=== PATIENT | female | born 1950 | race Caucasian/White ===

== ENCOUNTER 2016-07-25 06:36 | Day surgery (SDC) | payer MEDICARE, MEDICAID ==
[~2016-07-25] VITALS: Ht 152.4 cm; Wt 61.9 kg
[2016-07-25] VITALS (21 sets, daily range): BP systolic 78–161; BP diastolic 37–70; PULSE 65–80; RESP 4–20; O2SAT 92–100
[2016-07-25] MEDS: Lactated Ringer's 1,000 ML IV SCH ×5 (05:00→22:44)
[~2016-07-25 06:36] MED LIST: AMPH30CA5 PO; BACL10TA PO; CeFAZolin Inj 2 GM in IV Premix 1 EACH IV ONE; DESI75TA4 PO; DICL75TA6 PO; MIRA25TA PO; OMEP40CA36 PO; Phenazopyridine 97.5 mg Tablet PO ONE; TOPI200T7 PO; TRAZ-115 PO
[2016-07-25] MEDS ORDERED: Ondansetron 2 mg/mL 2 mL Inj ONE (06:37)
[2016-07-25] MEDS ORDERED: Furosemide 10 mg/mL 4 mL Inj ONE (06:37)
[2016-07-25] MEDS ORDERED: Dexamethasone 4 mg/mL Inj ONE (06:37)
[2016-07-25] MEDS ORDERED: Morphine PF 1 mg/mL 10 mL Inj ONE (06:37)
[2016-07-25] MEDS ORDERED: Ketamine 10 mg/mL 20 mL Inj ONE (06:37)
[2016-07-25] MEDS ORDERED: MetoCLOpramide 5 mg/mL 2 mL Inj ONE (06:37)
[2016-07-25] MEDS ORDERED: Propofol 10,000 mCg/mL 20 mL Inj ONE (06:37)
[2016-07-25] MEDS ORDERED: Phenylephrine/NS-PF 100 mCg/mL 5 mL Syringe IVPUSH ONE ×2 (06:37→14:58)
[2016-07-25] MEDS ORDERED: Rocuronium 10 mg/mL 5 mL Inj ONE (06:37)
[2016-07-25] MEDS ORDERED: EPHEDrine/NS 5 mg/mL 5 mL Syringe ONE (06:37)
[2016-07-25] MEDS ORDERED: Phenylephrine 10,000 mCg/mL Inj ONE (06:37)
[2016-07-25] MEDS ORDERED: CeFAZolin Inj 2 gm / 50mL D5W IV ONE (06:42)
[2016-07-25] MEDS ORDERED: Phenazopyridine 97.5 mg Tablet ONE (06:42)
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
[2016-07-25] MEDS ORDERED: Lactated Ringer's 1,000 ML IV SCH (09:23)
[2016-07-25] MEDS ORDERED: Lactated Ringer's 500 ML IV PRN (09:23)
[2016-07-25] MEDS ORDERED: MetoCLOpramide 5 mg/mL 2 mL Inj IVPUSH PRN ×2 (09:25→14:45)
[2016-07-25] MEDS ORDERED: Dexamethasone 4 mg/mL Inj IVPUSH PRN (09:25)
[2016-07-25] MEDS ORDERED: fentaNYL-PF 50 mCg/mL 2 mL Inj IVPUSH PRN (09:25)
[2016-07-25] MEDS ORDERED: Ondansetron 2 mg/mL 2 mL Inj IVPUSH PRN ×2 (09:25→14:45)
[2016-07-25] MEDS ORDERED: HYDROmorphone 1 mg/mL Inj IVPUSH PRN (09:25)
[2016-07-25] MEDS ORDERED: Phenylephrine 10,000 mCg/mL Inj IVPUSH PRN (09:25)
[2016-07-25] MEDS ORDERED: EPHEDrine Sulfate 50 mg/mL Inj IVPUSH PRN (09:25)
[2016-07-25] MEDS ORDERED: Lidocaine 1%-Epi 1:100,000 20 mL Inj INJ ONE (09:34)
[2016-07-25] MEDS ORDERED: Sodium Chloride Bacteriostatic 30 mL Inj INJ ONE ×2 (09:35→12:09)
[2016-07-25] MEDS ORDERED: Gentamicin 40 mg/mL 2 mL Inj IRRIGATION ONE ×2 (10:28→13:25)
[2016-07-25] MEDS ORDERED: Lactated Ringer's 1,000 ML IV ONE ×2 (11:16→13:00)
[2016-07-25] MEDS ORDERED: Lidocaine 1%-Epi 1:100,000 20 mL Inj INFILTRATE ONE (12:08)
[2016-07-25] MEDS ORDERED: HYDROcodone-APAP 5-325 mg Tablet PO PRN (14:45)
[2016-07-25] MEDS ORDERED: Alum-Mag Hydrox-Simeth 30 mL Suspension PO PRN (14:45)
[2016-07-25] MEDS ORDERED: Acetaminophen IV 1,000 MG in IV Premix 1 EACH IV ONE ×2 (14:45→22:30)
[2016-07-25] MEDS ORDERED: diphenhydrAMINE 25 mg Capsule PO PRN (14:45)
--- NOTE | 2016-07-25 15:26 | PCM.ANEP1 ---
Post Anesthesia Phase 1 PACU Phase 1 Assessment Vital Signs Vital Signs Date Time Temp Pulse Resp B/P Pulse Ox O2 Delivery O2 Flow Rate FiO2 07/25/16 15:20 72 12 96/56 100 Simple Mask 10 07/25/16 15:15 73 20 90/49 100 Simple Mask 10 07/25/16 15:05 65 7 89/37 100 Simple Mask 10 07/25/16 15:00 65 9 98/46 100 Simple Mask 10 07/25/16 14:55 65 11 78/49 100 Simple Mask 10 07/25/16 14:54 67 8 90/42 100 Simple Mask 10 07/25/16 14:52 67 4 82/42 100 Simple Mask 10 07/25/16 14:40 69 8 95/55 100 Simple Mask 10 07/25/16 14:33 36 69 14 104/59 100 Simple Mask 10 07/25/16 07:27 36.1 80 16 139/58 100 Room Air Anesthetic Administered: GA Level of Alertness: Awake, talking Pain: No Nausea or Vomiting: No Airway Device: Oralpharangeal Airway Lungs: Normal Air Movement Laith Pelayo MD Jul 25, 2016 15:26
--- NOTE | 2016-07-25 15:26 | PCM.ANEP2 ---
Post Anesthesia Evaluation ASA/CMS Post Anesthesia VS in Patient's Normal Range?: Yes Resp Stable; Airway Patent?: Yes CV Function & Hydration Stable: Yes Mental Status Recovered?: Yes Pain control Satisfactory?: Yes N/V Control Satisfactory?: Yes Laith Pelayo MD Jul 25, 2016 15:26
--- NOTE | 2016-07-25 16:18 | NUR ---
Pt is new to the floor. SW received call from pt's HCS Track Laborer Leonora Mccartney [phone] wondering if pt's catheter bags will be included in discharge supplies? Please update pt and Leonora Mccartney [phone] with this information prior to discharge. KELLIE Coronado
--- NOTE | 2016-07-25 17:15 | NUR ---
Post Op Pt arrived to [facility] rm 1030 from the OR at approx 1630. Rec'd report from Lucio. Pt was not answering questions, but open eyes to loud voices and sternal rub. Does not follow commands, was unable to scoot herself over to the hospital bed from the [facility]. Anesthesia called, at bedside. Romazicon administered x3mls. RT called, ETCO2 placed. VSS BGL 128 BP 99/60. Pt diaphoretic, appears extremely sleepy. Labs ordered by anesthesia, Dr Chaudhary notified.
[2016-07-25] MEDS: Flumazenil 0.1 mg/mL 5 mL Inj IV ONE ×2 (17:20→17:22)
--- NOTE | 2016-07-25 17:23 | ABG ---
DateTimeAnalyzed 17:17:00 -_ pH ____7.343 - 7.350 7.450 pCO2 ___41.6__ -mmHg 35.0 45.0 pO2 ___95.8__ -mmHg 69.0 116 HCO3- ___22.0__ -mmol/L 22.0 26.0 ABE ___-2.9__ -mmol/L -2.0 2.0 tHb ____9.8__ -g/dL O2Hb ___95.4__ -% COHb ____0.7__ -% MetHb ____1.9__ -% sO2 ___97.9__ -% FIO2 ___28.0__ -% Drawn By MT - Date/Time Notified____ 17:23:00 -_ Oxygen Device 1 __CANNULA - Notified By MT - Notified Whom Dr Leedom - B 768 -mmHg tO2 ___13.3__ -Vol% Tay test _Positive -
[2016-07-25 17:53] LABS: Mean Corpuscular Volume 93.7 fL (81-100)
--- NOTE | 2016-07-25 22:35 | PCM.SURGOP ---
Surgical Operative Report Date of Service: Jul 25, 2016 Pre Operative Diagnosis 1. Stress incontinence in female N39.3 (625.6): 2. POPQ stage 3 anterior vaginal prolapse 3. POPQ stage 2 apical uterine prolapse and posterior vaginal prolapse 4. RIANA 1-2 on recent cervical biopsy Post Operative Diagnosis 1. Stress incontinence in female 2. POPQ stage 3 cystocele and deficient pubocervical/pubovesical fascia 3. POPQ stage 2 uterine prolapse, enterocele and posterior vaginal prolapse Procedure: 1. vaginal hysterectomy with bilateral salpingectomy 2. anterior repair with Xenform graft augmentation 3. posterior repair 4. aborted high uterosacral ligament vaginal vault suspension; left sacrospinous vaginal vault suspension performed instead (PROCEDURE CODE 77728) 5. enterocele repair 6. TVT-obturator sling and cystoscopy Surgeon and Temporary Receptionist: Surgeon: Jeremiah Chaudhary MD Assistants: Etelvina Sparks Indication for Procedure Her assessment to date includes: 1. Urge incontinence N39.41 (788.31): 2. Stress incontinence in female N39.3 (625.6): 3. RIANA 1-2 on recent cervical biopsy 4. Cystocele, midline N81.11 (618.01): 5. Rectocele N81.6 (618.04): 6. Uterovaginal prolapse, incomplete N81.2 (618.2): She is a candidate for a vaginal hysterectomy with bilateral salpingectomy, anterior repair and posterior repair with possible Xenform biologic graft augmentation, vaginal vault suspension, enterocele repair and TVT-O sling/cystoscopy. The patient signed the consent form. She agreed with the risks, benefits, and alternatives to surgery. The risks included but not limited to recurrence or persistence of prolapse, recurrence of persistence of incontinence, development of voiding dysfunction, development of urinary urgency, urgency incontinence, frequency, and need for intermittent self-catheterization or prolonged indwelling catheterization, injury to other organs including bladder, bowel, nerves or blood vessels. Need for blood transfusion, need for temporary colostomy or urinary stenting. Development of vaginal scarring, dyspareunia, defecatory dysfunction, recurring pain, hematoma formation, urinary tract infection, cellulitis, necrotizing fascitis, and medical risks including myocardial infarction, stroke or VTE. She also understood the FDA warnings associated with the use of vaginal mesh (dysparunia, vaginal erosion, erosion into bowel/bladder/urethra, requiring further surgery to correct these complications). She understands surgery may not cure the urge incontinence and she may require the continued use of Myrbetriq. The patient understood the risks and benefits and consented to surgery. She has obtained neurological clearance. Findings: see dictation Procedure Details SURGICAL TECHNIQUE: The patient was brought to the operating room. She was placed under general anesthesia after spinal epimorph. She was positioned with legs in Yellowfin stirrups. She was prepped and draped in the normal fashion for vaginal surgery. She was given a dose of IV Ancef intraoperatively. She received 200 mg pyridium orally 30 min prior to surgery. 1. Vaginal Hysterectomy and bilateral salpingectomy: Lidocaine 0.5% with 1:50,000 of epinephrine was infiltrated pericervically. A pericervical incision was made with cautery. Anteriorly, the bladder was sharply dissected off the cervix. Posteriorly, the cul de sac was entered with Sharp dissection. The bowels were packed with a mini-laparotomy sponge. The uterosacral ligaments were bilaterally clamped, divided and then tied in a transfixion fashion with 0- vicryl suture. Anteriorly, the Uterovesical peritoneum was entered with sharp dissection and the bladder was retracted upward with a right-angle retractor. The uterine vessels were then clamped, cut and tied with 0-vicryl suture. The uterine body was delivered posteriorly. The utero-ovarian ligaments were clamped bilaterally, ligated and then tied using 0-Vicryl suture. The tubes appeared normal. Both ovaries were small and normal. She agreed to have a bilateral salpingectomy. The tubes were clamped at their base, coagulated with Ligasure and excised. The base was tied with 0-vicryl suture. The uterus/cervix, and tubes were sent to pathology. It was noted that the pedicles were hemostatic. 2-0 vicryl suture was used to achieve hemostasis along the cuff. 2. Aborted High uterosacral ligament vaginal vault suspension; cystoscopy and enterocele repair: Mini laparotomy sponges were packed to retract the bowel upwards. A pair of Allis clamps were placed along the intraperitoneal portions of the vagina at the 5 and 7 o'clock positions. Tension along these Allis clamps allowed for identification of the uterosacral ligaments bilaterally. A pair of 0 Vicryl sutures were passed around the uterosacral ligaments of the level of the ischial spine bilaterally, totalling 4. The peritoneum was torn along the right pelvic side wall. Oozing was noted along right pelvic side wall in the retroperitonal space. Adequate hemostasis was achieved using direct pressure with sponges, then insertion of Gelfoam in the space. The torn peritoneum was reapproximated with 2-0 vicryl suture in a running fashion. Cystoscopy was performed. As the pyridium was not concentrating well in the urine, 200 ml of D50 was instilled into the bladder. Tension was applied along the vault sutures and brisk spillage of urine was not noted from either ureteric orifice despite giving a bolus of fluid and IV Lasix. Therefore, the vault suspension sutures were excised. Repeat cystoscopy then revealed brisk spillage of urine from the ureteric orifices in the bladder. The D50 was emptied from the bladder and the bladder was rinsed with normal saline. We decided to abort the high uterosacral ligament suspension and instead perform a sacrospinous ligament vault suspension (see later in the dictation). Next one 3-0 Prolene suture were placed transversely through the cul-de-sac peritoneum. This was performed while using a gloved finger in the rectum as to avoid penetrating the underlying rectal mucosa. Tying these sutures obliterated the enterocele. The distal enterocele sac left over was excised and sent to pathology. 3. Anterior colporrhaphy with Xenform graft augmentation: Lidocaine 0.5% with 1 /28920 epinephrine was infiltrated along the anterior vaginal wall mucosa. A midline vertical incision was made through the anterior vaginal wall. The vaginal wall was dissected off the underlying pubocervical and pubovesical fascia. The dissection was extended laterally beyond the ischial pubic rami. Bilateral paravaginal defects were noted. It was noted that the pubocervical and pubovesical fascial tissues were deficient and thin. The cystocele was plicated in 2 layers, the first layer with 2-0 Vicryl suture in interrupted fashion, the second layer with 2-0 Tycron suture in an interrupted fashion. A trapezoidal piece of Xenform graft was then incorporated atop the plicated area far laterally. The graft was secured to the obturator internus membrane. At the level of the bladder neck, an upside down triangular piece of graft was excised so that there was no over-support created along the level of the bladder neck. Apically , the graft was passed through the planned sacrospinous ligament vaginal vault suspension sutures. No excess anterior vaginal mucosa was needed to be excised. 4. Posterior colpoperineorrhaphy and left sacrospinous vaginal vault suspension : Lidocaine 0.5% with 1:50,000 of epinephrine was infiltrated along the perineum and posterior vaginal wall mucosa. A midline vertical incision was made through the perineum and posterior vaginal wall. The vaginal mucosa was dissected off the underlying rectovaginal tissues. It was noted the fascial tissues were sufficient. The left perirectal space was then entered with sharp and blunt dissection to expose the left sacrospinous ligament. While retracting the rectum medially with a Briesky retractor, two 0- vicryl sutures were passed through the sacrospinous ligament approx. 1.5-2 cm medial to the ischial spine. The vault suspension sutures were then passed through the planned apex of the vagina. The rectocele was plicated in two layers using 2-0 Vicryl suture in an interrupted fashion. A mild amount of excess posterior vaginal mucosa was excised. The vagina was then reapproximated using 3-0 Vicryl suture in a running-locked fashion. The perineum was reapproximated using 2-0 Vicryl suture in an interrupted fashion. The skin was reapproximated using 3-0 Vicryl suture in a subcuticular fashion. The sacrospinous vaginal vault suspension sutures were tied and this elevated the apex of the vagina towards the L sacrospinous ligament. 5. TVT-Obturator sling and cystoscopy. Lidocaine 0.5% with 1/01690 epinephrine was infiltrated along the anterior vaginal wall mucosa at the level of the mid urethra. Midline vertical incision was made at that level, 2 periurethral tunnels were created with Metzenbaum scissors. Two stab incisions were created at the skin at the groin at a level 2 cm superior to the external urethral meatus and 2 cm lateral to the fold created between the vulva and thigh. Fair catheter had already been inserted. A butterfly guide was inserted into the right periurethral tunnel, a curved helical needle was inserted on top of the guide and rotated out to the ipsilateral skin incision. The same procedure was performed on the contralateral side. Next the Fair catheter was removed. Cystoscopy was performed with 300 ml D50 with NS. There was no inadvertent penetration of the sling through the vagina, urethra or bladder. In addition, the ureteric orifices were noted bilaterally to be functional by the brisk spillage of urine. The bladder appeared normal. The plastic sheaths of the sling were removed. Using the Crede maneuver, sling tension was appropriately adjusted. Also a large right angle clamp was allowed to easily pass behind the sling so that the sling was placed in a tension-free manner. The sling ends were cut at the level of the skin. The skin was reapproximated using Mastisol, Steri-Strips and band-aids. The vagina was reapproximated using 3-0 Vicryl suture in a running fashion The vagina was packed with XY-lubricated packing. An indwelling 16 F fair catheter was connected to straight drainage. The patient's hips were periodically deflexed during the case. The EBL was 300 ml. All sponges and instruments were accounted for. She was taken to the recovery room in stable condition. Complications After excision and removal of the high uterosacral ligament vault suspension sutures, cystoscopy revealed normal ureteric patency via cystoscopic visualization of brisk spillage of urine at the ureteric orifices Surgical Specimen Removed: Yes Specimen sent to Pathology: Yes Surgical Specimen description: Uterus, tubes, cervix, enterocele sac Anesthetic Plan: GA, SAB Grafts, Implants: Grafts-See Implant Record, Implants-See Implant Record Output, Estimated Blood Loss: 300 (ml) Blood Administration during villarreal: No Drains: None Catheters: Urethral 2 Way Fair Post Operative Plan overnight stay in bed as outpatient as she requires a voiding trial in the am copies to: Queenie Serna DO; Jeremiah Chaudhary MD; Etelvina Sparks William Andre Z MD Jul 25, 2016 22:35
[2016-07-26 00:20] VITALS: BP 120/64; PULSE 78; RESP 16; O2SAT 100
[2016-07-26] MEDS: Lactated Ringer's 1,000 ML IV SCH (01:25)
[2016-07-26 02:18] LABS: BASOPHILS % (AUTO) 0.1 % (0-3); EOSINOPHILS % (AUTO) 0.1 % (0-5); MONOCYTES % (AUTO) 9.8 % (4-12); Mean Corpuscular Hemoglobin 31.3 pg (27.0-35.0); Mean Corpuscular Volume 93.4 fL (81-100); NEUTROPHILS % (AUTO) 78.2 % (40-74); Platelet Count 299 bil/L (150-400)
[2016-07-26 02:32] VITALS: O2SAT 100
[2016-07-26 06:30] VITALS: BP 125/67; PULSE 79; RESP 18; O2SAT 94
[2016-07-26] MEDS ORDERED: Pantoprazole 40 mg ER24 Tablet PO SCH (06:30)
[2016-07-26 07:54] VITALS: O2SAT 95
[2016-07-26] MEDS ORDERED: Senna-Docusate 8.6-50 mg Tablet PO SCH (08:30)
[2016-07-26] MEDS ORDERED: Tolterodine ER 2 mg ER24 Capsule PO SCH (08:30)
[2016-07-26] MEDS ORDERED: DEXTROAMPHETAMINE 15 MG PO SCH (08:30)
[2016-07-26] MEDS ORDERED: Amphetamines (Mixed) XR 10 mg ER24 Capsule PO SCH (08:30)
[2016-07-26] MEDS ORDERED: Heparin 5,000 Unit/mL Inj SUBQ SCH (09:30)
--- NOTE | 2016-07-26 11:20 | PCM.PNSURG ---
Subjective Date of Service: Jul 26, 2016 Date of Service: Jul 26, 2016 Visit Information: Reason for Visit Cystocele,Uterovag Prolapse,Rectocele,Incontinence Surgery/Surgery Date Post-Op Day # 1 Subjective: AVSS pt was assessed by anesthesiologist early this am and found her to be somewhat drowsy However, I saw the patient later this am and she was fully alert after she was helped out of the bed onto a chair; she usually ambulates with a cane at home Oriented x 3 I explained the surgery to her Her serial Hct were stable (9.0 at 0213 am and 9.0 at 0905 am today); known hx of pre-existing anemia even prior to surgery She states she cannot tolerate oral iron tolerated soft foods Pain control with tylenol for now; narcotics was held until her drowsiness improved; NSAIDs held until we knew Hct was stable Gastrointestinal: Tolerating Oral Feedings Pain Management: PO Neurological: Other (oriented x 3) Postop Activity: Ambulate with Assist Objective Vital Sign- Last 8 Hours Date Time Temp Pulse Resp B/P Pulse Ox O2 Delivery O2 Flow Rate FiO2 07/26/16 07:54 81 95 Room Air 07/26/16 06:30 36.3 79 18 125/67 94 Room Air 07/26/16 04:12 Supplement Oxygen Intake and Output- Last 8 Hour 07/26/16 Cumulative From/Thru 07:00 07/24/16 12:57 - 07/26/16 06:51 Intake Total 1535 ml 4585 ml Output Total 950 ml 2260 ml Balance 585 ml 2325 ml Intake Oral 50 ml 50 ml IV Total 1485 ml 4535 ml Output Urine Total 950 ml 1660 ml Estimated Blood Loss 600 ml Lungs: Clear to Auscultation Abdomen: Benign, Soft Catheters: Urethral 2 Way Fair Result Diagram: 07/26/16 0905 07/25/16 1692 Assessment & Plan Impression 1. POD#1, stable 2. Pre-existing iron deficiency anemia (prior to surgery) with acute exacerbation due to blood loss; she does not tolerate po iron; Hct 9 and stable 3. Hx of PTSD, anxiety 4. Hx of requiring walker for ambulation, may be a fall risk 5. Mild hyponatremia - receiving IV NS Problems: Plan The patient would like to go home today if possible. Her sensorium now and alertness level is consistent with her behavior that I have witnessed in the past. She needs a PT and OT evaluation. She may require a walker. I have asked her executive secretary social welfare to contact the hospital executive secretary social welfare to see what services could be provided for her at home. If possible, a home health nurse may come in several times a week to check her vitals, ensure she is taking her meds, etc. OT should evaluate if she can take care of her ADL's. The patient has 2 friends that will look after her dogs and may also check in on her from time to time. She needs a voiding trial once ambulating well. If she fails she will need to go home with an indwelling catheter. I will hever the type of catherization protocol depending on her level of manual dexterity and how much help she would have at home with a fair and bag. If she is discharged today, f/u in [address] Chaudhary. If she goes home with catheter, also f/u in 1 wk with his MA for a voiding trial. Start Heparin sc tid for prophylaxis as Hct is stable. Can restart sulindac which she also takes at home. Use iron-rich foods to help with anemia. Repeat H&H in 2 wk. copies to: Jeremiah Chaudhary MD, William Andre Z MD Jul 26, 2016 11:20
--- NOTE | 2016-07-26 11:55 | NUR ---
Evaluation completed. Please go to "Notes" then click on "Assessments and Notes" (bottom left corner of screen). Then select appropriate discipline tab on top of screen.
[2016-07-26 12:53] VITALS: BP 109/58; PULSE 86; RESP 18; O2SAT 99
--- NOTE | 2016-07-26 13:25 | PCM.DIGYN ---
Surgical Discharge Instruction Dates of Hospitalization Date of Hospital Admission 07/25/16 as outpatient overnight stay in bed Providers Admitting Physician: Primary Care Physician: Other,Physician Attending Physician: Jeremiah Chaudhary MD Diagnosis at Time of Discharge Diagnosis at time of discharge uterovaginal prolapse stress incontinence RIANA 1-2 Post-operative diagnosis 1. Stress incontinence in female 2. POPQ stage 3 cystocele and deficient pubocervical/pubovesical fascia 3. POPQ stage 2 uterine prolapse, enterocele and posterior vaginal prolapse Problems: Diet Discharge Diet: No restrictions Activity Discharge Activity-General: Restrict lifting to no greater than (10 lbs for 12 wks) Dressing and Incisional Care Dressing Care: Allow Steri Stripes to fall off Hygiene: May shower Follow Up Plan Follow-up appointment: Weeks (2; also f/u with Dr. Chaudhary's MA in 1 wk if home with a catheter) Call your provider for: Fever, Chills, Shortness of breath Jeremiah Chaudhary MD Jul 26, 2016 13:25
--- NOTE | 2016-07-26 15:05 | NUR ---
OT unable to see pt. first thing this morning due to prior commitments with inpatient and outpatient services (I am the only OT for inpatient). I attempted to see pt. at 3pm but pt. had discharged. Discussed with physical therapy and nursing and between multiple people supporting her and equipment already in place it sounds as though she should successful with recover with regard to function and safety. Epi Araujo, OTR/L
--- NOTE | 2016-07-26 15:10 | NUR ---
Discharge Pt d/c'd home at approx 1510. Reviewed instructions w/ patient. Answered all questions. Voiding trial completed at approx 1030. Pt complained of discomfort during removal of the packing, but otherwise tolerated the procedure. Pt up ambulating w/ student RN x3 the to commode to void. Pt voided 300mls w/ mild burning sensation. IV d/c'd intact. No complaints of pain. Pt left w/ no new RX and all belongings. Taken to her friends' POV via w/c.
--- NOTE | 2016-07-26 16:09 | PROG NOTE ---
[address] [address] PROGRESS NOTE PATIENT: SARA LEMA : 1950 MR#: [id number] ADMIT: 07/25/2016 JOB ID: [id number] DATE: 07/26/2016 A 65-year-old female, status post vaginal hysterectomy with sling and anterior repair. The patient's operation yesterday went smoothly. She had no intraoperative abnormalities in terms of her physiology or vital signs. Upon discharge from the operating room to the PACU, she remained fairly obtunded and somnolent for quite some time. It was difficult to ascertain if this was normal behavior or something new. I called Dr. Chaudhary and he stated that she was rather sleepy and somnolent during his initial interactions with her preoperatively when working her up for her vaginal prolapse. She would follow commands. However, she would not carry a conversation. She was satting 100% on nasal cannula oxygen and all other vital signs were stable. At that point in time, I ordered an ABG, CBC and BMP, all of which were nondiagnostic to explain her level of sleepiness. Her friends in the room did not seem overly concerned and said that she was very tired and this behavior was not abnormal. I decided to followup the next morning, which is now today, and the patient remained quite sleepy at bedside. She was more talkative and asked for her glasses and answered questions selectively appropriately. She did not answer what year it was nor did she get the location of which hospital she was in correct. She did, however, identify what surgery she had and said she remembered she was in [facility] once I reminded her. I asked her if she was concerned at her level of sleepiness and she said she was simply tired. At that point, I called Dr. Chaudhary back again and said that I simply did not know this woman enough given her psychiatric history to make any kind of judgment if this behavior was normal. Her vital signs are stable as were her laboratory values. I suggested potentially getting a head CT versus a psychiatric consult. He again reassured me that this was typical behavior for her and that he would be getting OT/PT and a social work consultation for her.
--- NOTE | 2016-07-26 16:30 | NUR ---
Social Work: discharge Patient discharging home with Roseann BOLIVAR and patient's BREANNA worker Leonora Mccartney was notified. Leonora Mccartney will evaluate the patient in the home on 07/30/16 due to change in condition. Patient's Stevens was DC'd and patient will not need supplies at home. Dominique Herman, DRE, ACM
--- NOTE | 2016-07-30 13:56 | PATH ---
SURGICAL PATHOLOGY Attending Physician:Jeremiah Chaudhary, CASE STATUS: Signed Out PATIENT NAME: SARA LEMA PID: [id number] : 1950 DATE COLLECTED:07/25/2016 00:00 SPECIMEN: 1: Uterus +/- tubes/ovaries, except neoplastic, prolapse 2: Fallopian Tube, Biopsy 3: Hernia Sac CLINICAL HISTORY: CYSTOCELE, UTEROVAGINAL PROLAPSE, RECTOCELE, INCONTINENCE, RIANA 1-2 ON CERVICAL BIOPSY. PLEASE CHECK FOR CERVICAL DYSPLASIA/CARCINOMA 1). UTERUS AND LEFT FALLOPIAN TUBE 2). RIGHT FALLOPIAN TUBE 3). ENTEROCELE SAC FINAL DIAGNOSIS: 1.UTERUS AND LEFT FALLOPIAN TUBE: HIGH-GRADE SQUAMOUS INTRAEPITHELIAL LESION (RIANA 3), INVOLVING CERVIX AND VAGINAL CUFF. THE CAUTERIZED VAGINAL CUFF MARGIN IS POSITIVE FOR HIGH-GRADE DYSPLASIA IN THE 12 O' CLOCK TO 3 O' CLOCK QUADRANT. FALLOPIAN TUBE WITH MULTIPLE BENIGN PARATUBAL CYSTS. 2.RIGHT FALLOPIAN TUBE: FALLOPIAN TUBE WITH MULTIPLE BENIGN PARATUBAL CYSTS. NEGATIVE FOR DYSPLASIA AND MALIGNANCY. 3.ENTEROCELE SAC: FIBROADIPOSE TISSUE, NO EVIDENCE OF NEOPLASIA. ICD10 CODE D06 N83.9 N81.6 GROSS DESCRIPTION: The specimens are received in formalin, labeled with the patient's name, and sublabeled as the following: (1) uterus and left fallopian tube; (2) right fallopian tube; (3) enterocele sac. (1) The specimen consists of a uterus (32.7 g, 2.4 cm AP, 5.5 cm SI, 3.2 cm ML) and sinus right ear attached fimbriated fallopian tube (length-3.5 cm, diameter-0.2 cm). The ovaries and second fallopian tube are absent. The cervix (1.3 cm AP, 2.5 cm ML) has a vaginal cuff (up to 2.0 cm in depth), a transverse os and patent endocervical canal. The mucosa is gilman-pink, focally brown and bosselated at approximately 3:00 to 6:00.The endometrium (average thickness-0.1 cm) is gilman smooth and flat. The myometrium (thickness-1.4 cm) is gilman and unremarkable. The serosa is gilman smooth and shiny. The fallopian tube has a gilman smooth shiny serosa with multiple paratubal cysts a progress report 1 cm) containing clear colorless fluid. The lumen is gilman and unremarkable. The cervix is radially sectioned and submitted from 12:00. Section code: (1A-1B) cervix, 12:00 to 3:00; (1C-1F) cervix, 3:00 to 6:00; (1G-1K) cervix, 6:00 to 9:00; (1L-1M) cervix, 9:00 to 12:00; posterior cervix; (1N, 1O) anterior endomyometrium; (1P, 1Q) posterior endomyometrium; (1R) right fallopian tube, serially sectioned, merchandising representative; (1S) fimbria, bivalved, entirely submitted. Note: Cervix entirely submitted. (2) The specimen consists of a fimbriated fallopian tube (length-2.2 cm, diameter-your 0.2 cm). The serosa is gilman smooth and shiny with multiple paratubal cysts (0.1 cm) containing clear colorless fluid. The lumen is gilman and unremarkable. Section code: (2A) fallopian tube, serially sectioned; (2B) fimbria, bivalved. Specimen entirely submitted. (3) The specimen consists of a piece of lópez-pink smooth shiny membranous and fatty tissue (3.7 x 1.6 x 0.4 cm). Section code: (3A) tissue, serially sectioned, merchandising representative. 07/26/16 MICRO DESCRIPTION: See diagnosis. ICD-9 CODES: CPT CODES: 1: 01371 2: 44027 3: 17033 Electronically Signed Out Norberto Hinkle MD [facility] [address], [place] [address] Technical component performed at [facility], [facility] [address], [address]
== END 2016-07-26 15:05 | disposition home or self-care (01) ==
LOC: SAS 06:36 → OSC 16:16 → UNDOADMIN 16:16 → SAS 07-26 15:05
PROVIDERS: ATTEND Obstetrics & Gynecology
PROC: 0UTC7ZZ Resection of Cervix, Via Natural or Artificial Opening (ICD-10-PCS; 2016-07-25)
PROC: 0UT77ZZ Resection of Bilateral Fallopian Tubes, Via Natural or Artificial Opening (ICD-10-PCS; 2016-07-25)
PROC: 0JUC0KZ Supplement of Pelvic Region Subcutaneous Tissue and Fascia with Nonautologous Tissue Substitute, Open Approach (ICD-10-PCS; 2016-07-25)
PROC: 0JQC0ZZ Repair Pelvic Region Subcutaneous Tissue and Fascia, Open Approach (ICD-10-PCS; 2016-07-25)
PROC: 0TSD0ZZ Reposition Urethra, Open Approach (ICD-10-PCS; 2016-07-25)
PROC: 0USG0ZZ Reposition Vagina, Open Approach (ICD-10-PCS; 2016-07-25)
PROC: 0UT97ZZ Resection of Uterus, Via Natural or Artificial Opening (ICD-10-PCS; principal; 2016-07-25 08:30)
DX: N81.2 Incomplete uterovaginal prolapse (principal); N81.11 Cystocele, midline; N81.6 Rectocele; N39.46 Mixed incontinence; D06.0 Carcinoma in situ of endocervix; N95.2 Postmenopausal atrophic vaginitis; Z86.718 Personal history of other venous thrombosis and embolism; Z87.820 Personal history of traumatic brain injury; D50.9 Iron deficiency anemia, unspecified; F43.10 Post-traumatic stress disorder, unspecified; F41.9 Anxiety disorder, unspecified; E87.1 Hypo-osmolality and hyponatremia; R40.0 Somnolence
CPT/HCPCS: 36415; 36620; 57265; 57267; 57282; 57288; 58262; 80048; 82375; 82803; 85014; 85018; 85025; 85027; 86850; 86870; 88302; 88305; 88307; 97161; C1763; C1771; G8978; G8979; G8980; J0131; J0690; J1100; J1580; J1940; J2250; J2274; J2370; J2405; J2765; J7120